=== PATIENT | male | born 1945 | race Caucasian/White ===

== ENCOUNTER 2018-06-16 18:14 | Emergency (ER) | payer BC ==
[2018-06-16 18:21] VITALS: BP 144/87; PULSE 75; TEMP 98.2; BMI 34.4
--- NOTE | 2018-06-16 18:28 | PDOC ---
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 The patient reports that he was at home peeling a potato preparing dinner when he accidentally peeled his right pointer finger. The patient reports that the site began to bleed but the bleeding could not be controlled. He states that he is left hand dominant.He denies any other symptoms. He denies any fever, chills, nausea, vomit, diarrhea, constipation or urinary symptoms. He denies chest pain , shortness of breath, headache and dizziness. The patient denies any other complaints. PCP: Dr. Griffin <Dheeraj Sanchez - Last Filed: 06/16/18 18:59> - General Chief Complaint: Injury Stated Complaint: FINGER CUT Time Seen by Provider: 06/16/18 18:22 Past History - Past Medical History COPD: No DVT: Yes Disorders: Yes (BPH) HTN: Yes Hypercholesterolemia: Yes - Surgical History Orthopedic Surgery: Yes (left knee surgery) - Immunization History TDAP Vaccination: Yes (06/01/2014) - Suicide/Smoking/Psychosocial Hx Smoking History: Never smoked Number of Cigarettes Smoked Daily: 0 Hx Alcohol Use: No Drug/Substance Use Hx: No Substance Use Type: None <Socorro Zaidi - Last Filed: 06/16/18 18:50> <Dheeraj Sanchez - Last Filed: 06/16/18 18:59> - Past Medical History Allergies/Adverse Reactions: Allergies Allergy/AdvReac Type Severity Reaction Status Date / Time erythromycin base Allergy Verified 06/01/14 09:44 [Erythromycin Base] Home Medications: Ambulatory Orders Telmisartan [Micardis] 40 mg PO DAILY 06/01/14 Warfarin Sodium [Coumadin] 10 mg PO TUSA 06/01/14 Zolpidem Tartrate [Ambien Cr] 12.5 mg PO HS 06/01/14 Atorvastatin Ca [Lipitor] 5 mg PO HS 06/16/18 Cholecalciferol (Vitamin D3) [Vitamin D3] 3,000 unit PO DAILY 06/16/18 Finasteride [Proscar] 5 mg PO DAILY 06/16/18 Multivit-Minerals/Folic Acid [Centrum Multigummies] 150 mcg PO DAILY 06/16/18 Warfarin Na [Coumadin] 7.5 mg PO SUMOWETHFR 06/16/18 Review of Systems - Review of Systems Able to Perform ROS?: Yes Comments:: 06/16/18 18:58 GENERAL/CONSTITUTIONAL: No fever or chills. No weakness. HEAD, EYES, EARS, NOSE AND THROAT: No change in vision. No ear pain or discharge. No sore throat. CARDIOVASCULAR: No chest pain or shortness of breath. RESPIRATORY: No cough, wheezing, or hemoptysis. GASTROINTESTINAL: No nausea, vomiting, diarrhea or constipation. GENITOURINARY: No dysuria, frequency, or change in urination. MUSCULOSKELETAL: (+)right finger injury. No joint or muscle swelling or pain. No neck or back pain. SKIN: No rash NEUROLOGIC: No headache, vertigo, loss of consciousness, or change in strength/ sensation. ENDOCRINE: No increased thirst. No abnormal weight change. HEMATOLOGIC/LYMPHATIC: No anemia, easy bleeding, or history of blood clots. ALLERGIC/IMMUNOLOGIC: No hives or skin allergy. <Dheeraj Sanchez - Last Filed: 06/16/18 18:59> *Physical Exam - Vital Signs Last Vital Signs Temp Pulse Resp BP Pulse Ox 98.2 F 75 16 144/87 97 06/16/18 18:16 06/16/18 18:16 06/16/18 18:16 06/16/18 18:16 06/16/18 18:16 <Socorro Zaidi - Last Filed: 06/16/18 18:50> - Vital Signs Last Vital Signs Temp Pulse Resp BP Pulse Ox 98.2 F 75 16 144/87 97 06/16/18 18:16 06/16/18 18:16 06/16/18 18:16 06/16/18 18:16 06/16/18 18:16 - Physical Exam Comments: 06/16/18 18:58 GENERAL: Awake, alert, and fully oriented, in no acute distress HEAD: No signs of trauma EYES: PERRLA, EOMI, sclera anicteric, conjunctiva clear ENT: Auricles normal inspection, hearing grossly normal, nares patent, oropharynx clear without exudates. Moist mucosa NECK: Normal ROM, supple, no lymphadenopathy, JVD, or masses LUNGS: Breath sounds equal, clear to auscultation bilaterally. No wheezes, and no crackles HEART: Regular rate and rhythm, normal S1 and S2, no murmurs, rubs or gallops ABDOMEN: Soft, nontender, normoactive bowel sounds. No guarding, no rebound. No masses EXTREMITIES: (+)small avulsion to pad of distal tip of right pointer finger. Edema in ankles. Normal range of motion. No clubbing or cyanosis. No cords, erythema, or tenderness NEUROLOGICAL: Cranial nerves II through XII grossly intact. Normal speech, normal gait SKIN: Warm, Dry, normal turgor, no rashes or lesions noted. 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 Surgicell applied to the wound with hemostasis of the lac. CBC/INR pending Pt will be signed out to the oncoming ED physician pending labs. <Socorro Zaidi - Last Filed: 06/16/18 18:50> *DC/Admit/Observation/Transfer - Discharge Dispostion Decision to Admit order: No - Attestations Physician Attestion: 06/16/18 18:48 I, Dr. Socorro Zaidi, DO, attest that this document has been prepared under my direction and personally reviewed by me in its entirety. I further attest, that it accurately reflects all work, treatment, procedures and medical decision -making performed by me. <Socorro Zaidi - Last Filed: 06/16/18 18:50> - Attestations Scribe Attestion: 06/16/18 18:58 Documentation prepared by Dheeraj Sanchez, acting as medical records library professor for Socorro Zaidi MD. <Dheeraj Sanchez - Last Filed: 06/16/18 18:59> Diagnosis at time of Disposition: Avulsion injury - Discharge Dispostion Condition at time of disposition: Stable - Referrals Referrals: Felipe Loco [Primary Care Provider] - - Patient Instructions Printed Discharge Instructions: DI for Avulsion Laceration (Not Requiring Sutures) Additional Instructions: Please keep the hand elevated. Please do not get the finger wet. Please keep the finger in a dressing with antibiotic cream. Please follow up with your PMD for a wound check in 2-3 days. Please return to the ED with any further concerns or complaints. - Post Discharge Activity
[2018-06-16 19:08] LABS: BASO % 0.8 % (0-2.0); EOS % 3.5 % (0-4.5); HEMATOCRIT 42.2 % (35.4-49); HEMOGLOBIN 13.8 GM/dl (11.7-16.9); LYMPH % 17.1 % (8-40); MCH 27.4 pg (25.7-33.7); MCHC 32.7 g/dl (32.0-35.9); MEAN CELL VOLUME 83.9 fl (80-96); MEAN PLT VOLUME 8.9 fl (7.5-11.1); MONO % 8.1 % (3.8-10.2); NEUT % 70.5 % (42.8-82.8); PLATELET COUNT 214 K/MM3 (134-434); RBC 5.03 M/mm3 (4.00-5.60); RDW 13.7 % (11.9-15.9); WHITE BLOOD COUNT 6.8 K/mm3 (4.0-10.8)
[2018-06-16 19:10] LABS: INR 2.57 (0.82-1.09); PROTHROMBIN TIME (PATIENT) 28.3 SEC (10.2-13.0)
== END 2018-06-16 19:18 | disposition home or self-care (01) ==
LOC: FER 18:14
PROC: 0HQFXZZ Repair Right Hand Skin, External Approach (ICD-10-PCS; principal; 2018-06-16)
DX: S61.210A Laceration without foreign body of right index finger without damage to nail, initial encounter (principal); I10 Essential (primary) hypertension; Z86.718 Personal history of other venous thrombosis and embolism; Z79.01 Long term (current) use of anticoagulants; W27.8XXA Contact with other nonpowered hand tool, initial encounter; Y93.G1 Activity, food preparation and clean up; Y92.9 Unspecified place or not applicable; N40.0 Benign prostatic hyperplasia without lower urinary tract symptoms; E78.00 Pure hypercholesterolemia, unspecified
CPT/HCPCS: 36415; 85025; 85610; 99282-25

== ENCOUNTER 2021-01-04 21:56 | Emergency (ER) | payer BC ==
[2021-01-04 22:10] VITALS: TEMP 98.6; BMI 32.1
[2021-01-04 22:57] VITALS: BP 154/76; PULSE 75
== END 2021-01-04 23:00 | disposition home or self-care (01) ==
LOC: FER 21:56
DX: S20.212A Contusion of left front wall of thorax, initial encounter (principal)
CPT/HCPCS: 71046-TC-FY; 71101-TC-RT-FY; 99284-25

== ENCOUNTER 2022-06-26 01:32 | Emergency (ER) | payer BC ==
[2022-06-26 02:09] VITALS: PULSE 83; RESP 18; TEMP 98.6; BMI 33.5
[2022-06-26 03:12] LABS: BASO % 2.1 % (0-2.0); EOS % 7.3 % (0-4.5); HEMATOCRIT 40.6 % (35.4-49); HEMOGLOBIN 13.5 GM/dL (11.7-16.9); LYMPH % 25.8 % (8-40); MCH 28.4 pg (25.7-33.7); MCHC 33.3 g/dl (32.0-35.9); MEAN CELL VOLUME 85.1 fl (80-96); MEAN PLT VOLUME 8.1 fl (7.5-11.1); MONO % 10.7 % (3.8-10.2); NEUT % 54.1 % (42.8-82.8); PLATELET COUNT 209 10^3/uL (134-434); RBC 4.77 M/mm3 (4.00-5.60); RDW 15.1 % (11.9-15.9); WHITE BLOOD COUNT 6.9 K/mm3 (4.0-10.0)
[2022-06-26 03:23] LABS: INR 1.52 (0.83-1.09); PROTHROMBIN TIME (PATIENT) 17.6 SEC (9.7-13.0)
[2022-06-26 03:38] LABS: ALBUMIN 3.2 g/dl (3.4-5.0); CALCIUM 7.5 mg/dL (8.5-10.1)
[2022-06-26 03:39] LABS: BLOOD UREA NITROGEN 19.2 mg/dL (7-18)
[2022-06-26 03:41] LABS: CREATININE 0.8 mg/dL (0.55-1.3)
[2022-06-26 03:43] LABS: BILIRUBIN,TOTAL 0.3 mg/dL (0.2-1)
[2022-06-26 05:44] VITALS: BP 179/86
== END 2022-06-26 05:41 | disposition short-term general hospital (02) ==
LOC: JER 01:32
DX: H53.8 Other visual disturbances (principal)
CPT/HCPCS: 36415; 70450-TC; 70496-TC; 70498-TC; 72125-TC; 80053; 84484; 85025; 85610; 93005; 93010; 99285-25; Q9967